=== PATIENT | female | born 1970 | race Caucasian/White ===

== ENCOUNTER 2017-06-17 18:27 | Emergency (ER) | payer SELFPAY ==
--- NOTE | 2017-06-17 19:05 | NUR ---
PATIENT CALLED TO BE TRIAGE NO ANSWER.
--- NOTE | 2017-06-17 19:10 | NUR ---
CALLED [facility] THE SECOND TIME, NO RESPONSE
--- NOTE | 2017-06-17 19:15 | NUR ---
CALLED FOR THE THIRD TIME NO RESPONSE. PATIENT LEFT WITHOUT BEING SEEN BY DR. HOLLAND. NO FURTHER CARE PROVIDED FOR PATIENT.
== END 2017-06-17 19:15 | disposition left against medical advice (07) ==
LOC: MED 18:27
DX: R10.9 Unspecified abdominal pain (principal); Z53.21 Procedure and treatment not carried out due to patient leaving prior to being seen by health care provider

== ENCOUNTER 2019-11-27 14:46 | Emergency (ER) | payer OTHER ==
[~2019-11-27] VITALS: Ht 160 cm; Wt 90.7 kg
[2019-11-27 14:50] VITALS: BP 153/96
--- NOTE | 2019-11-27 15:10 | NUR ---
PT AMBULATE TO BED 7 WITH STEADY GAIT.
--- NOTE | 2019-11-27 15:11 | NUR ---
C/O VAGINAL PAIN , RASH X 2 DAYS.PT AOX 4 , AFIBRILE , DENIES VAGINAL DISCHARGE , USE TRADITIONAL MEDS WITH NO RELIEF. MED HX: DENIES
--- NOTE | 2019-11-27 15:12 | NUR ---
LIBORIO COLBY AT BEDSIDE EVALUATING PT..
[2019-11-27 15:22] VITALS: BP 153/96
--- NOTE | 2019-11-27 15:23 | NUR ---
Patient discharged with v/s stable. Written and verbal after care instructions given and explained regarding vaginitis. Patient alert, oriented and verbalized understanding of instructions. Ambulatory with steady gait. All questions addressed prior to discharge. ID band removed. Patient advised to follow up with PMD. Rx of nystatin and fluconazole given. Patient educated on indication of medication including possible reaction and side effects. Opportunity to ask questions provided and answered.
== END 2019-11-27 15:23 | disposition home or self-care (01) ==
LOC: MED 14:46
DX: B37.3 Candidiasis of vulva and vagina (principal)
CPT/HCPCS: 81002; 99283

== ENCOUNTER 2019-12-22 09:42 | Emergency (ER) | payer OTHER ==
[~2019-12-22] VITALS: Ht 160 cm; Wt 90.7 kg
[2019-12-22 09:44] VITALS: BP 136/82
--- NOTE | 2019-12-22 09:49 | NUR ---
Patient ambulated to bed 2. RN evaluating patient at bedside.
--- NOTE | 2019-12-22 09:50 | NUR ---
urine cup handed to pt for sample
--- NOTE | 2019-12-22 09:53 | NUR ---
49 Y/O F C/C YEAST INFECTION X 3 DAYS. PER PT WAS SEEN AT [facility] ER FOR SAME C/C X 3 WEEKS AGO, RX WAS GIVEN, PT UNABLE TO RECALL RX, NO RELIEF. PT PRESENTS WITH PAIN 10/10, BURNING SENSATION, AND SORES. DENIES DYSURIA. NKA. NO HX. NO RX. NO NVD. SIDE RAIL X1.
[2019-12-22] MEDS ORDERED: FLUCONAZOLE 100 MG TAB PO STA (10:10)
--- NOTE | 2019-12-22 10:10 | NUR ---
Stood in as female ticket collector for Dr. Sauceda during patient exam.
[2019-12-22 10:19] VITALS: BP 132/80
--- NOTE | 2019-12-22 10:19 | NUR ---
Patient discharged with v/s stable. Written and verbal after care instructions given and explained. Patient alert, oriented and verbalized understanding of instructions. Ambulatory with steady gait. All questions addressed prior to discharge. ID band removed. Patient advised to follow up with PMD. Rx of BACTRIM,FLUCONAZOLE given. Patient educated on indication of medication including possible reaction and side effects. Opportunity to ask questions provided and answered.
[2019-12-22 12:57] LABS: BILIRUBIN,URINE NEGATIVE (NEGATIVE); BLOOD, URINE TRACE-L (NEGATIVE); COLOR,URINE YELLOW (YELLOW); LEUKOCYTE ESTERASE ,URINE NEGATIVE (NEGATIVE); NITRITE, URINE NEGATIVE (NEGATIVE); UGLUCOSE 3+ (NEGATIVE)
[2019-12-22 13:15] LABS: APPEARANCE,URINE SLIGHTLY HAZY (CLEAR)
[2019-12-22 13:17] LABS: RBC,URINE NONE SEEN /HPF (0-5)
[2019-12-25 06:07] LABS: CHLAMYDIA TRACHOMATIS AMP DNA Negative (Negative)
== END 2019-12-22 10:19 | disposition home or self-care (01) ==
LOC: MED 09:42
DX: B37.3 Candidiasis of vulva and vagina (principal); L73.8 Other specified follicular disorders
CPT/HCPCS: 36415; 81001; 81025; 87086; 87110; 87186; 87299; 87491; 99283

== ENCOUNTER 2020-04-08 20:19 | Emergency (ER) | payer OTHER ==
[~2020-04-08] VITALS: Ht 162.6 cm; Wt 81.2 kg
[2020-04-08 20:49] VITALS: BP 170/91
--- NOTE | 2020-04-08 20:55 | NUR ---
50 Y/O FEMALE BIB SELF FOR C/O 03/01 "SEVERE" EPIGASTRIC ABD PAIN RADIATING TO LEFT LOWER BACK X TODAY AM. ABDOMEN WAS ROUND, SOFT AND NON-TENDER, PT WAS OBSERVED GUARDING AREA LEFT LOWER ABD. ACTIVE BOWEL SOUNDS X 4 QUADRANTS. SHE FURTHER STATED THAT, "I FEEL MY CHEST TIGHT". HEART SOUNDS S1 & S2 PRESENT. NO S3, S4 OR MURMURS PRESENT. LUNG SOUNDS WERE CLEAR BILATERALLY THOUGHOUT A&P. DENIED TAKING ANY OTC MEDS FOR PAIN PRIOR TO ED. PT PLACED ON JUNIOR SYSTEMS ADMINISTRATOR, BED LOCKED AND IN LOWEST POSITION. MHX: DENIES NKA
[2020-04-08] MEDS ORDERED: DICYCLOMINE 10 MG CAP PO ONE (21:10)
[2020-04-08] MEDS ORDERED: FAMOTIDINE 20 MG TAB PO ONE (21:10)
[2020-04-08] MEDS ORDERED: KETOROLAC 60 MG/2 ML VIAL IM ONE (21:10)
--- NOTE | 2020-04-08 21:10 | NUR ---
ERI KRISHNAMURTHY AT BEDSIDE EVALUATING PT.
--- NOTE | 2020-04-08 21:19 | NUR ---
LABS AT BEDSIDE FOR BLOOD DRAWN.
--- NOTE | 2020-04-08 21:21 | NUR ---
US BEING PERFORMED AT BEDSIDE. Addendum: 04/08/20 at 2129 by MEDGE *PT LAYING FLAT DURING ULTRA SOUND, UNABLE TO GIVE PO MEDS AT THIS TIME. TORADOL GIVEN AT THIS TIME.
[2020-04-08 21:54] LABS: APPEARANCE,URINE SL CLOUDY (CLEAR); BILIRUBIN,URINE NEGATIVE (NEGATIVE); BLOOD, URINE TRACE-I (NEGATIVE); COLOR,URINE YELLOW (YELLOW); LEUKOCYTE ESTERASE ,URINE NEGATIVE (NEGATIVE); NITRITE, URINE NEGATIVE (NEGATIVE); UGLUCOSE 3+ (NEGATIVE)
[2020-04-08 22:00] LABS: BASOPHILS # (AUTO) 0.1 K/uL (0.00-0.22); BASOPHILS % (AUTO) 0.8 % (0.0-2.0); EOSINOPHILS # (AUTO) 0.1 K/uL (0-0.4); EOSINOPHILS % (AUTO) 0.7 % (0.0-4.0); HEMATOCRIT 41.8 % (36-48); LYMPHOCYTES # (AUTO) 2.1 K/uL (2.5-16.5); LYMPHOCYTES % (AUTO) 18.6 % (20.5-51.1); MEAN CORPUSCULAR HEMOGLOBIN 29 pg (27-31); MEAN CORPUSCULAR HGB CONC 34 g/dL (33-37); MEAN CORPUSCULAR VOLUME 87.4 fL (80-94); MONOCYTES # (AUTO) 0.8 K/uL (0.8-1.0); MONOCYTES % (AUTO) 7.2 % (1.7-9.3); NEUTROPHILS # (AUTO) 8.1 K/uL (1.8-7.7); NEUTROPHILS % (AUTO) 72.7 % (42.2-75.2); PLATELET COUNT (AUTO) 256 K/uL (140-450); RED BLOOD CELL COUNT(AUTO) 4.79 MIL/uL (4.20-5.40); RED CELL DISTRIBUTION WIDTH 12.8 % (11.6-13.7); WHITE BLOOD COUNT (AUTO) 11.1 K/uL (4.8-10.8)
[2020-04-08 22:25] LABS: ALBUMIN 3.6 g/dL (3.4-5.0); ANION GAP 13.4 (8-16); CARBON DIOXIDE 25.5 mmol/L (21-32); CREATININE 0.8 mg/dL (0.6-1.3); POTASSIUM 3.9 mmol/L (3.5-5.1); TOTAL BILIRUBIN 0.3 mg/dL (0.0-1.0)
--- NOTE | 2020-04-08 22:28 | NUR ---
NOTIFIED DR. MIRELES OF [facility]ITICAL [facility] - GLUCOSE OF 535. DR. MIRELES VERBALIZED, "I WILL EVALUATE SOON I AM DONE WITH THIS OTHER PT". NO NEW ORDERS AT THIS TIME.
[2020-04-08] MEDS ORDERED: INSULIN REGULAR, HUMAN 100 UNIT/ML VIAL IVP ONE ×2 (22:50→23:10)
[2020-04-08] MEDS ORDERED: NACL 0.9% 1,000 ML IV ONE (23:00)
--- NOTE | 2020-04-08 23:03 | NUR ---
ACCUCHREEMA AT 547. ER MD DR. MIRELES NOTIFIED GAVE NEW ORDERS.
--- NOTE | 2020-04-08 23:34 | NUR ---
IV ESTABLISHED TO R AC 20G, SITE PATENT FLUSHED WITH 10 ML OF 0.9% NS. NO INFILTRATION, REDNESS OR SWELLING NOTED. TOLERATED PROCEDURE WELL.
--- NOTE | 2020-04-09 | NUR ---
PT AMBULATED TO THE BATHROOM AND BACK TO HER ROOM.
--- NOTE | 2020-04-09 00:15 | NUR ---
ACCUCHECK OF 304, NOTIFIED ER MD DR. MIRELES. NO NEW ORDERS AT THIS TIME. ER MD AT BEDSIDE RE-EVALUATING PT.
[2020-04-09 00:33] LABS: RBC,URINE 0-5 /HPF (0-5); WBC,URINE 0-5 /HPF (0-5)
--- NOTE | 2020-04-09 00:58 | NUR ---
Patient discharged with v/s stable. Written and verbal after care instructions given and explained. Patient alert, oriented and verbalized understanding of instructions. Ambulatory with steady gait. All questions addressed prior to discharge. ID band removed. Patient advised to follow up with PMD. Rx of KEFLEX & METFORMIN given. Patient educated on indication of medication including possible reaction and side effects. Opportunity to ask questions provided and answered.
[2020-04-09 01:01] VITALS: BP 133/83
== END 2020-04-09 00:58 | disposition home or self-care (01) ==
LOC: MED 20:19
DX: E11.9 Type 2 diabetes mellitus without complications (principal); H00.011 Hordeolum externum right upper eyelid; R10.13 Epigastric pain; Z98.890 Other specified postprocedural states
CPT/HCPCS: 36415; 76705; 80053; 81001; 83690; 85025; 93005; 96361; 96372; 96374; 99283; J1815; J1885; J7030

== ENCOUNTER 2020-05-07 01:26 | Emergency (ER) | payer OTHER ==
[~2020-05-07] VITALS: Ht 160 cm; Wt 72.6 kg
[2020-05-07 01:30] VITALS: BP 139/87
--- NOTE | 2020-05-07 01:33 | NUR ---
TO LOBBY A/W BED AMBULATORY
--- NOTE | 2020-05-07 03:16 | NUR ---
LEFT WITHOUT BEING SEEN
== END 2020-05-07 03:00 | disposition home or self-care (01) ==
LOC: MED 01:26
DX: R73.9 Hyperglycemia, unspecified (principal); Z53.21 Procedure and treatment not carried out due to patient leaving prior to being seen by health care provider

== ENCOUNTER 2021-01-23 12:29 | Emergency (ER) | payer OTHER ==
[~2021-01-23] VITALS: Ht 160 cm; Wt 68.0 kg
--- NOTE | 2021-01-23 12:40 | NUR ---
ATTEMPTED TO CALL PT AT THIS TIME, NO ANSWER
[2021-01-23 12:51] VITALS: BP 155/119
--- NOTE | 2021-01-23 12:55 | NUR ---
PT TO AWAIT IN LOBBY AT THIS TIME
--- NOTE | 2021-01-23 14:13 | NUR ---
PT TAKEN TO BED 11.
--- NOTE | 2021-01-23 14:40 | NUR ---
50 Y/O F BIB SELF FROM HOME, PATIENT PRESENTS TO ED WITH ABSCESS ON L LABIAL AREA, SITE IS NOT BLEEDING OR HAS OPEN DRAINAGE. PT STATES SHE HAS BEEN ITCHING, NO PAIN IN AREA. PT ALSO HAS WHITE, THICK DISCHARGE FROM VAGINAL AREA, NOT SITE OF ABSCESS. DENIES N/V/D; SKIN IS PINK/WARM/DRY; AAOX4 WITH EVEN AND STEADY GAIT; LUNGS CLEAR BL; HR EVEN AND REGULAR; PT DENIES ANY FEVER, CP, SOB, OR COUGH AT THIS TIME; PATIENT STATES PAIN OF 0/10 AT THIS TIME, ONLY ITCHING; VSS; PATIENT POSITIONED FOR COMFORT; HOB ELEVATED; BEDRAILS UP X2; BED DOWN. ER MD MADE AWARE OF PT STATUS. PMH: ROBBIN2 ALPHONSO
[2021-01-23] MEDS ORDERED: FLUC150T PO (14:44)
[2021-01-23] MEDS ORDERED: CEPH-588 PO (14:44)
[2021-01-23] MEDS ORDERED: MICO2CRE70 VG (14:44)
[2021-01-23 15:22] VITALS: BP 155/119
--- NOTE | 2021-01-23 15:22 | NUR ---
Patient discharged with v/s stable. Written and verbal after care instructions given and explained. Patient alert, oriented and verbalized understanding of instructions. Ambulatory with steady gait. All questions addressed prior to discharge. ID band removed. Patient advised to follow up with PMD. Rx of FLUCONAZOLE, CEPHALEXIN, MICONAZOLE given. Patient educated on indication of medication including possible reaction and side effects. Opportunity to ask questions provided and answered.
== END 2021-01-23 15:22 | disposition home or self-care (01) ==
LOC: MED 12:29
DX: N76.0 Acute vaginitis (principal); L02.416 Cutaneous abscess of left lower limb; E11.9 Type 2 diabetes mellitus without complications; Z79.899 Other long term (current) drug therapy
CPT/HCPCS: 81002; 81025; 99283

== ENCOUNTER 2021-08-28 20:25 | Emergency (ER) | payer OTHER ==
[~2021-08-28] VITALS: Ht 160 cm; Wt 76.3 kg
[~2021-08-28 20:25] MED LIST: CEPH-588 PO; FLUC150T PO; MICO2CRE70 VG
[2021-08-28 20:39] VITALS: BP 143/84
--- NOTE | 2021-08-28 20:44 | NUR ---
PT AMBULATED TO BED #3
--- NOTE | 2021-08-28 21:05 | NUR ---
DR. SHORT AT BEDSIDE
--- NOTE | 2021-08-28 21:09 | NUR ---
51 Y/O F BIB SELF FOR EAR AND NECK PAIN X 10 DAYS. PT STATES THAT SHE WENT TO DENTIST VISIT AND SHE NEEDS MULTIPLE TOOTH EXTRACTIONS. DENTIST TOLD HER THAT SHE MUST CLEAR UP INFECTION FIRST BUT DID NOT RECIEVE THE ANTIBIOTIC MEDS. PT STATES ITS NOT PAINFUL BUT UNCOMFORTABLE. PAIN 0/10. PT SMOKES, SOBER FROM DRUGS X7 YEARS .DENIES DRINKING DENIES N/V/D; SKIN IS PINK/WARM/DRY; AAOX4 WITH EVEN AND STEADY GAIT; LUNGS CLEAR BL; HR EVEN AND REGULAR; PT DENIES ANY FEVER, CP, SOB, OR COUGH AT THIS TIME VSS; PMH: DIABETES, PRE HTN RX: METFORMIN ALLERGIES: NKA
[2021-08-28] MEDS ORDERED: PENI500T20 PO (21:22)
[2021-08-28 21:47] VITALS: BP 143/84
--- NOTE | 2021-08-28 21:47 | NUR ---
Patient discharged with v/s stable. Written and verbal after care instructions given and explained. Patient alert, oriented and verbalized understanding of instructions. Ambulatory with steady gait. All questions addressed prior to discharge. ID band removed. Patient advised to follow up with PMD. Rx of PENICILLIN POTASSIUM given. Opportunity to ask questions provided and answered.
--- NOTE | 2021-08-28 21:57 | NUR ---
The patient's care was reviewed and supervised by Claudia Wheat RN.
== END 2021-08-28 21:47 | disposition home or self-care (01) ==
LOC: MED 20:25
DX: H92.02 Otalgia, left ear (principal); K04.7 Periapical abscess without sinus; E11.9 Type 2 diabetes mellitus without complications
CPT/HCPCS: 99283

== ENCOUNTER 2023-01-06 17:31 | Emergency (ER) | payer MEDICAID, OTHER ==
[~2023-01-06] VITALS: Ht 160 cm; Wt 71.8 kg
[~2023-01-06 17:31] MED LIST changes: +PENI500T20 PO
[2023-01-06 17:57] VITALS: BP 173/99; PULSE 98; RESP 20; TEMP 98; O2SAT 97
[2023-01-06 18:19] LABS: BASOPHILS # (AUTO) 0.1 K/uL (0.00-0.22); BASOPHILS % (AUTO) 0.8 % (0.0-2.0); EOSINOPHILS # (AUTO) 0.2 K/uL (0-0.4); EOSINOPHILS % (AUTO) 1.6 % (0.0-4.0); HEMATOCRIT 41.3 % (36-48); HEMOGLOBIN 13.6 g/dL (12.0-16.0); LYMPHOCYTES # (AUTO) 3.7 K/uL (2.5-16.5); LYMPHOCYTES % (AUTO) 28.4 % (20.5-51.1); MEAN CORPUSCULAR HEMOGLOBIN 28 pg (27-31); MEAN CORPUSCULAR HGB CONC 33 g/dL (33-37); MEAN CORPUSCULAR VOLUME 85.3 fL (80-94); MONOCYTES # (AUTO) 1.1 K/uL (0.8-1.0); MONOCYTES % (AUTO) 8.5 % (1.7-9.3); NEUTROPHILS # (AUTO) 7.9 K/uL (1.8-7.7); NEUTROPHILS % (AUTO) 60.7 % (42.2-75.2); PLATELET COUNT (AUTO) 312 K/uL (140-450); RED BLOOD CELL COUNT(AUTO) 4.84 MIL/uL (4.20-5.40); RED CELL DISTRIBUTION WIDTH 13.2 % (11.6-13.7)
[2023-01-06 19:16] LABS: ALBUMIN 3.4 g/dL (3.4-5.0); ANION GAP 11.7 (8-16); CALCIUM 8.9 mg/dL (8.5-10.1); CARBON DIOXIDE 28.5 mmol/L (21-32); CREATININE 1.1 mg/dL (0.6-1.3); POTASSIUM 4.2 mmol/L (3.5-5.1); TOTAL BILIRUBIN 0.3 mg/dL (0.0-1.0); TOTAL PROTEIN, SERUM 7.4 g/dL (6.4-8.2)
[2023-01-06] MEDS ORDERED: NACL 0.9% 1,000 ML IV ONE (19:40)
[2023-01-06] MEDS ORDERED: KETOROLAC 30 MG/ML VIAL IVP ONE (19:40)
[2023-01-06 21:38] VITALS: BP 136/79; PULSE 70; RESP 18; O2SAT 98
== END 2023-01-06 23:25 | disposition home or self-care (01) ==
LOC: MED 17:31
DX: S20.219A Contusion of unspecified front wall of thorax, initial encounter (principal); S30.1XXA Contusion of abdominal wall, initial encounter; E86.0 Dehydration; E11.65 Type 2 diabetes mellitus with hyperglycemia; K80.20 Calculus of gallbladder without cholecystitis without obstruction; D25.9 Leiomyoma of uterus, unspecified; F17.210 Nicotine dependence, cigarettes, uncomplicated; Z98.890 Other specified postprocedural states; Z79.899 Other long term (current) drug therapy; W19.XXXA Unspecified fall, initial encounter; Y93.89 Activity, other specified; Y92.89 Other specified places as the place of occurrence of the external cause; Y99.8 Other external cause status
CPT/HCPCS: 36415; 71260; 74177; 80053; 81002; 81025; 83690; 85025; 96361; 96374; 99285; J1885; J7030

== ENCOUNTER 2023-01-25 13:27 | Emergency (ER) | payer MEDICAID ==
[~2023-01-25] VITALS: Ht 162.6 cm; Wt 72.6 kg
[2023-01-25 13:47] VITALS: BP 150/90; PULSE 90; RESP 20; TEMP 98; O2SAT 98
== END 2023-01-25 15:34 | disposition left against medical advice (07) ==
LOC: MED 13:27
DX: R53.83 Other fatigue (principal); R51.9 Headache, unspecified; R53.1 Weakness; Z79.899 Other long term (current) drug therapy
CPT/HCPCS: 99281